=== PATIENT | male | born 1950 | race Caucasian/White ===

== ENCOUNTER 2023-11-19 12:14 | Emergency (ER) | payer MEDICARE, OTHER ==
[2023-11-19 13:20] LABS: BASOPHILS ABSOLUTE AUTO 0.1 K/mm3 (0.0-0.2); EOSINOPHILS ABSOLUTE AUTO 0.2 K/mm3 (0.0-0.4); EOSINOPHILS PERCENT AUTO 2.1 % (0.0-6.0); HEMATOCRIT 38.7 % (42.0-52.0); HEMOGLOBIN 13.1 gm/dl (14.0-18.0); IMMATURE GRAN ABSOLUTE AUTO 0.03 K/mm3 (0.00-0.05); IMMATURE GRAN PERCENT AUTO 0.3 % (0.0-0.4); LYMPHOCYTES ABSOLUTE AUTO 1.7 K/mm3 (1.0-4.8); LYMPHOCYTES PERCENT AUTO 19.1 % (24.0-44.0); MEAN CORPUSCULAR HEMOGLOBIN 30.3 pg (28.0-32.0); MEAN CORPUSCULAR HGB CONC 33.9 g/dl (32.0-36.0); MEAN CORPUSCULAR VOLUME 89.4 fl (83.0-99.0); MEAN PLATELET VOLUME 9.2 fl (9.4-12.4); MONOCYTES ABSOLUTE AUTO 0.5 K/mm3 (0.0-0.8); MONOCYTES PERCENT AUTO 5.2 % (0.0-8.0); NEUTROPHILS ABSOLUTE AUTO 6.3 K/mm3 (1.8-7.7); NEUTROPHILS PERCENT AUTO 72.3 % (41.0-71.0); PLATELET COUNT,PLT 271 K/mm3 (150-400); RED BLOOD CELL COUNT 4.33 M/mm3 (4.52-5.90); WHITE BLOOD CELL COUNT,WBC 8.69 K/mm3 (3.9-11.3)
[2023-11-19 13:33] LABS: A/G RATIO 0.9 (1-2); ALBUMIN 3.6 g/dl (3.4-5.0); ANION GAP 14.6 (5-15); BILIRUBIN TOTAL 0.4 mg/dL (0.2-1.0); BUN/CREATININE RATIO 15.6 (14-18); CREATININE 1.8 mg/dL (0.7-1.3); EST CRCL DRUG DOSING (CG) 35.89 mL/min; MAGNESIUM 1.7 mg/dL (1.8-2.4); POTASSIUM,K 3.6 mEq/L (3.5-5.1); PROTEIN TOTAL,TP 7.5 g/dl (6.4-8.2)
[2023-11-19 13:36] LABS: APPEARANCE,URINE CLOUDY (Clear); BILIRUBIN,URINE 1+ (Negative); COLOR,URINE DARK YELLOW (Yellow); GLUCOSE,URINE NEGATIVE (Negative); KETONES,URINE TRACE (Negative); LEUKOCYTE ESTERASE,URINE 3+ (Negative); NITRITE,URINE POSITIVE (Negative); OCCULT BLOOD,URINE 2+ (Negative); PH,URINE 5.5 (5.0-8.0); PROTEIN,URINE 2+ (Negative); UROBILINOGEN,URINE 0.2 (0.2-1.0)
[2023-11-19 13:46] LABS: BACTERIA,URINE MANY /hpf (FEW); RBC,URINE 50-75 /hpf (0-5); WBC,URINE >100 /hpf (0-5)
[2023-11-19 13:47] LABS: MUCUS,URINE MODERATE /hpf (FEW)
[2023-11-19] MEDS ORDERED: cefTRIAXone 1 GM, Lidocaine 1% 2.1 ML IM ONE ×2 (13:52)
[2023-11-19 13:58] LABS: CORONAVIRUS COVID-19 NAA NEGATIVE (NEGATIVE); INFLUENZA A NAA NEGATIVE (NEGATIVE); RESPIRATORY SYNCYTIAL VIR NAA NEGATIVE (NEGATIVE)
[2023-11-19] MEDS ORDERED: Dicyclomine 10 MG Cap PO ONE (14:31)
[2023-11-19] MEDS ORDERED: cefTRIAXone 1 GM in Sodium Chloride 0.9% 100 ML IV ONE (15:00)
== END 2023-11-19 15:20 | disposition home or self-care (01) ==
LOC: MERGE 12:14 → JD.ED 12:14
DX: N39.0 Urinary tract infection, site not specified (principal); Z88.0 Allergy status to penicillin; Z20.822 Contact with and (suspected) exposure to COVID-19
CPT/HCPCS: 0241U; 36415; 80053; 81001; 83735; 84484; 85025; 93005; 96365; 99284; J0696; J3490; 93010; 99283